=== PATIENT | male | born 1945 | race Caucasian/White ===

== ENCOUNTER 2018-05-02 04:24 | Emergency (ER) | payer OTHER, MEDICARE ==
[~2018-05-02] VITALS: Ht 182.9 cm; Wt 100.0 kg
[~2018-05-02 04:24] MED LIST: AMOXICILLIN500 MG PO; HYDROXYCHLOROQ200 MG PO; PRAVASTATIN20 MG PO; PREDNISONE5 MG PO; PRILOSEC20 MG PO; ULTRAM50 M1 PO; ZOFRAN ODT4 MG PO
[2018-05-02 05:14] LABS: HEMATOCRIT 44.2 % (39.0-50.0); HEMOGLOBIN 15.5 g/dl (14.0-18.0); IMMATURE GRANULOCYTES 0.4 % (0.0-1.0); MEAN CELL VOLUME 90.9 fL CALC (80.0-100.0); MEAN CORPUSCULAR HGB 31.9 pG CALC (26.0-32.0); MEAN CORPUSCULAR HGB CONC 35.1 g/L CALC (32.0-36.0); NEUT# 6.56 thou/uL (1.82-7.42); RED BLOOD COUNT 4.86 mill/uL (4.70-6.10); RED CELL DISTRI WIDTH 11.8 % (11.5-15.5)
[2018-05-02 05:15] LABS: URINE BILIRUBIN - DIPSTICK NEGATIVE (NEGATIVE); URINE BLOOD DIPSTICK SMALL (NEGATIVE); URINE CLARITY SL CLOUDY; URINE COLOR YELLOW; URINE GLUCOSE - DIPSTICK NEGATIVE (NEGATIVE); URINE KETONE NEGATIVE (NEGATIVE); URINE LEUK ESTERASE NEGATIVE (NEGATIVE); URINE NITRITE - DIPSTICK NEGATIVE (Negative); URINE PROTEIN - DIPSTICK NEGATIVE (NEG-TRACE); URINE SPECIFIC GRAVITY 1.025; URINE UROBILINOGEN - DIPSTICK 0.2 E.U./dL (0.2)
[2018-05-02 05:24] LABS: URINE MUCUS FEW hpf (NONE-FEW); URINE SQUAMOUS EPITHELIAL CELL FEW EPI/hpf (0-FEW)
[2018-05-02 05:31] LABS: BILIRUBIN, TOTAL 0.6 mg/dL (0.0-1.4); CREATININE 1.5 mg/dL (0.7-1.3); POTASSIUM 4.6 mmol/l (3.5-5.1); TOTAL PROTEIN 7.1 g/dL (6.3-8.2)
[2018-05-02] MEDS ORDERED: TAMSULOSIN0.4 MG PO (07:02)
[2018-05-02] MEDS ORDERED: MAGNESIUM296 ML/BTL PO (07:02)
[2018-05-02] MEDS ORDERED: LORTAB 5/3255 MG PO (07:02)
[2018-05-02 07:20] VITALS: BP 145/68
== END 2018-05-02 07:30 | disposition home or self-care (01) | DRG 392 ==
LOC: ED 04:24
PROVIDERS: Family Medicine
DX: K59.00 Constipation, unspecified (principal); N13.2 Hydronephrosis with renal and ureteral calculous obstruction; R11.0 Nausea

== ENCOUNTER 2019-12-16 | Emergency (ER) | payer OTHER, MEDICARE ==
[~2019-12-16] MED LIST changes: +LORTAB 5/3255 MG PO; +MAGNESIUM296 ML/BTL PO; +TAMSULOSIN0.4 MG PO
[2019-12-16 16:28] LABS: HEMATOCRIT 44.8 % (39.0-50.0); HEMOGLOBIN 15.6 g/dl (14.0-18.0); IMMATURE GRANULOCYTES 0.2 % (0.0-5.0); MEAN CELL VOLUME 89.8 fL CALC (80.0-100.0); MEAN CORPUSCULAR HGB 31.3 pG CALC (26.0-32.0); MEAN CORPUSCULAR HGB CONC 34.8 g/L CALC (32.0-36.0); NEUT# 3.93 thou/uL (1.82-7.42); RED BLOOD COUNT 4.99 mill/uL (4.70-6.10); RED CELL DISTRI WIDTH 11.9 % (11.5-15.5)
[2019-12-16 16:29] LABS: GFR > 60 ML/MIN (>=60 (CALC)); GFR FOR AFR.AMER. > 60 ML/MIN (>=60 (CALC))
[2019-12-16] MEDS ORDERED: DOXYCYCL HYC100 MG PO (16:34)
[2019-12-16 16:43] LABS: ALBUMIN 4.4 g/dL (3.2-5.0); ALKALINE PHOSPHATASE 111 u/l (38-126); ANION GAP 15 (6-22 (CALC)); BILIRUBIN, TOTAL 0.8 mg/dL (0.0-1.4); BUN 19 mg/dL (8-23); BUN/CREATININE RATIO 23 (12-20 (CALC)); CARBON DIOXIDE 25 mmol/l (22-30); CHLORIDE 103 mmol/l (95-108); CREATININE 0.8 mg/dL (0.7-1.3); ETHYL ALCOHOL 0 mg/dl (0-30); GFR > 60 ML/MIN (>=60 (CALC)); GFR FOR AFR.AMER. > 60 ML/MIN (>=60 (CALC)); LIPASE 38 u/l (23-300); MAGNESIUM 1.9 mg/dL (1.6-2.3); POTASSIUM 3.8 mmol/l (3.5-5.1); SGOT/AST 32 u/l (19-48); SODIUM 139 mmol/l (137-146); TOTAL PROTEIN 7.6 g/dL (6.3-8.2)
[2019-12-16 16:46] LABS: ACT PARTIAL THROMBO TIME 24.5 SECONDS (20.0-32.5); PROTHROMBIN TIME 10.3 SECONDS (9.0-12.5)
== END 2019-12-16 20:45 | disposition short-term general hospital (02) | DRG 282 ==
DX: I21.4 Non-ST elevation (NSTEMI) myocardial infarction (principal)
CPT/HCPCS: J1644

== ENCOUNTER 2020-05-02 20:55 | Emergency (ER) | payer OTHER, MEDICARE ==
[~2020-05-02] VITALS: Ht 182.9 cm; Wt 100.0 kg
[~2020-05-02 20:55] MED LIST changes: +DOXYCYCL HYC100 MG PO
[2020-05-02] MEDS ORDERED: LOPRESSOR25 M1 PO (22:04)
[2020-05-02] MEDS ORDERED: CRESTOR40 MG PO (22:05)
[2020-05-02] MEDS ORDERED: PLAVIX75 MG PO (22:05)
[2020-05-02] MEDS ORDERED: ZESTRIL5 M1 PO (22:05)
[2020-05-02] MEDS ORDERED: ASPIRIN CHEWABL81 MG PO (22:06)
[2020-05-02 22:09] LABS: HEMATOCRIT 39.9 % (39.0-50.0); IMMATURE GRANULOCYTES 0.4 % (0.0-5.0); MEAN CELL VOLUME 90.1 fL CALC (80.0-100.0); MEAN CORPUSCULAR HGB 31.6 pG CALC (26.0-32.0); MEAN CORPUSCULAR HGB CONC 35.1 g/dL CAL (32.0-36.0); NEUT# 7.89 thou/uL (1.82-7.42); RED BLOOD COUNT 4.43 mill/uL (4.70-6.10); RED CELL DISTRI WIDTH 12.8 % (11.5-15.5)
[2020-05-02 22:10] LABS: URINE BILIRUBIN - DIPSTICK NEGATIVE (NEGATIVE); URINE BLOOD DIPSTICK LARGE (NEGATIVE); URINE COLOR YELLOW; URINE GLUCOSE - DIPSTICK NEGATIVE (NEGATIVE); URINE KETONE NEGATIVE (NEGATIVE); URINE LEUK ESTERASE NEGATIVE (NEGATIVE); URINE NITRITE - DIPSTICK NEGATIVE (Negative); URINE PH 5.5 (4.5-8.0); URINE PROTEIN - DIPSTICK NEGATIVE (NEG-TRACE); URINE SPECIFIC GRAVITY >=1.030; URINE UROBILINOGEN - DIPSTICK 0.2 E.U./dL (0.2)
[2020-05-02 22:22] LABS: ALBUMIN 4.4 g/dL (3.2-5.0); BILIRUBIN, TOTAL 0.9 mg/dL (0.0-1.4); CREATININE 1.5 mg/dL (0.7-1.3); POTASSIUM 3.9 mmol/l (3.5-5.1); TOTAL PROTEIN 7.4 g/dL (6.3-8.2)
[2020-05-02 22:23] LABS: URINE WBC 0-2 WBC/hpf (0-5)
[2020-05-03] MEDS ORDERED: IBUPROFEN600 MG PO (00:21)
[2020-05-03] MEDS ORDERED: LEVAQUIN750 MG PO (00:21)
[2020-05-03] MEDS ORDERED: TAMSULOSIN0.4 MG PO (00:21)
[2020-05-03 00:45] VITALS: BP 105/70
== END 2020-05-03 00:48 | disposition home or self-care (01) | DRG 693 ==
LOC: ED 20:55
PROVIDERS: Emergency Medicine
DX: N20.0 Calculus of kidney (principal); J18.9 Pneumonia, unspecified organism; Z87.442 Personal history of urinary calculi